=== PATIENT | female | born 1985 | race Caucasian/White ===

== ENCOUNTER 2023-03-03 08:00 | Outpatient (CLI) | payer OTHER ==
[2023-03-03 18:54] LABS: BASOPHILS # (AUTO) 0.1 10^3/uL (0.0-0.1); BASOPHILS % (AUTO) 0.5 %; EOSINOPHILS # (AUTO) 0.2 10^3/uL (0.0-0.7); EOSINOPHILS % (AUTO) 2.1 %; HCT - HEMATOCRIT 46.5 % (37.0-47.0); HGB - HEMOGLOBIN 15.2 g/dL (12.0-16.0); LYMPHOCYTES # (AUTO) 3.2 10^3/uL (1.5-3.5); LYMPHOCYTES % (AUTO) 34.2 %; MEAN CORPUSCULAR HEMOGLOBIN 30.8 pg (27.0-31.0); MEAN CORPUSCULAR HGB CONC 32.7 g/dL (32.0-36.0); MEAN CORPUSCULAR VOLUME 94.1 fL (81.0-99.0); MEAN PLATELET VOLUME 10.2 fL (7.9-10.8); MONOCYTES # (AUTO) 0.5 10^3/uL (0.0-1.0); MONOCYTES % (AUTO) 5.4 %; NEUTROPHILS # (AUTO) 5.4 10^3/uL (1.5-6.6); NEUTROPHILS % (AUTO) 57.4 %; PLT - PLATELET COUNT 487 10^3/uL (130-450); RED BLOOD COUNT 4.94 10^6/uL (4.20-5.40); RED CELL DISTRIBUTION WIDTH 13.3 % (12.0-15.0); WHITE BLOOD COUNT 9.5 x10^3/uL (4.8-10.8)
[2023-03-03 19:23] LABS: ALBUMIN 4.4 g/dL (3.2-5.5); ALBUMIN/GLOBULIN RATIO 1.4 (1.0-2.2); BILIRUBIN,TOTAL 0.5 mg/dL (0.2-1.0); CALCIUM 9.3 mg/dL (8.5-10.3); CREATININE 0.7 mg/dL (0.6-1.3); CRP - C-REACTIVE PROTEIN 1.4 mg/dL (<0.5); TOTAL PROTEIN 7.6 g/dL (6.4-8.9)
[2023-03-03 21:18] LABS: CHLAMYDIA TRACHOMATIS DNA NEGATIVE (NEGATIVE); NEISSERIA GONORRHOEAE DNA NEGATIVE (NEGATIVE)
[2023-03-03 22:48] LABS: BACTERIAL VAGINOSIS DNA NEGATIVE (NEGATIVE); CANDIDA GLABRATA DNA NEGATIVE (NEGATIVE); CANDIDA GROUP DNA NEGATIVE (NEGATIVE); CANDIDA KRUSEI DNA NEGATIVE (NEGATIVE); TRICHOMONAS VAGINALIS DNA NEGATIVE (NEGATIVE)
== END 2023-03-03 23:59 | disposition home or self-care (01) ==
LOC: LAB.N 08:00
PROVIDERS: ATTEND Registered Nurse
DX: R10.30 Lower abdominal pain, unspecified (principal); R30.0 Dysuria
CPT/HCPCS: 36415; 80053; 81514; 83690; 85025; 86140; 87086; 87491; 87591; 87661

== ENCOUNTER 2023-12-17 18:08 | Emergency (ER) | payer SELFPAY ==
[2023-12-17 18:20] VITALS: BP 145/83; O2SAT 97
[2023-12-17 18:38] LABS: BASOPHILS # (AUTO) 0.1 10^3/uL (0.0-0.1); BASOPHILS % (AUTO) 0.6 %; EOSINOPHILS # (AUTO) 0.3 10^3/uL (0.0-0.7); HCT - HEMATOCRIT 43.5 % (37.0-47.0); HGB - HEMOGLOBIN 14.6 g/dL (12.0-16.0); MEAN CORPUSCULAR HEMOGLOBIN 31.1 pg (27.0-31.0); MEAN CORPUSCULAR HGB CONC 33.6 g/dL (32.0-36.0); MEAN CORPUSCULAR VOLUME 92.6 fL (81.0-99.0); MEAN PLATELET VOLUME 9.2 fL (7.9-10.8); MONOCYTES # (AUTO) 0.7 10^3/uL (0.0-1.0); MONOCYTES % (AUTO) 8.1 %; NEUTROPHILS # (AUTO) 4.4 10^3/uL (1.5-6.6); NEUTROPHILS % (AUTO) 52.1 %; PLT - PLATELET COUNT 470 10^3/uL (130-450); RED CELL DISTRIBUTION WIDTH 13.2 % (12.0-15.0); WHITE BLOOD COUNT 8.4 x10^3/uL (4.8-10.8)
[2023-12-17 18:44] LABS: BILIRUBIN,URINE NEGATIVE (NEGATIVE); GLUCOSE, URINE (UA) NEGATIVE (NEGATIVE); KETONES,URINE (UA) NEGATIVE (NEGATIVE); LEUKOCYTE ESTERASE, URINE NEGATIVE (NEGATIVE); NITRITE,URINE NEGATIVE (NEGATIVE); OCCULT BLOOD,URINE TRACE-INTA (NEGATIVE); PROTEIN,URINE NEGATIVE (NEGATIVE); UROBILINOGEN,URINE 0.2 (NORMAL) E.U./dL (NORMAL)
[2023-12-17 18:48] LABS: CLARITY,URINE CLEAR (CLEAR); HCG UR QUAL NEGATIVE
[2023-12-17 18:51] LABS: ALBUMIN 4.1 g/dL (3.2-5.5); ALBUMIN/GLOBULIN RATIO 1.3 (1.0-2.2); BILIRUBIN,TOTAL 0.5 mg/dL (0.2-1.0); CALCIUM 8.7 mg/dL (8.5-10.3); CREATININE 0.8 mg/dL (0.6-1.3); POTASSIUM 3.7 mmol/L (3.5-4.5); TOTAL PROTEIN 7.3 g/dL (6.4-8.9)
[2023-12-17] MEDS: ONDANSETRON 4 MG/2 ML VIAL IVP STA (19:33)
--- NOTE | 2023-12-17 19:34 | ED Physician Documentation ---
History of Present Illness - Stated complaint Stated Complaint: RT SIDE ABD PX - Chief complaint Chief Complaint: Abd Pain - Additonal information Additional information: Patient is a 37-year-old female presenting to the emergency department with past medical history of cholecystectomy. Patient presents with right upper quadrant pain. She notes symptoms have been going on for a few weeks but worsened within the last 2 days. She is scheduled for an ultrasound the outpatient setting with her PCP but not for another month. She developed nausea and vomiting over the last 2 days and symptoms have progressively gotten worse. She notes she has been unable to eat or drink anything due to severe pain after eating. She has no history of alcohol use no history of pancreatitis. No other abdominal surgeries. She has no fevers but occasional chills with her symptoms. She has been urinating normally and has been slightly more constipated but denies any other symptoms. She notes pain radiates to the right upper back. She notes her pain feels similar to when she had gallstones in the past. PD PAST MEDICAL HISTORY - Past Medical History Past Medical History: No Cardiovascular: None Respiratory: None Neuro: None Endocrine/Autoimmune: None GI: None [employer] TECH[employer]ICIAN: None : None HEENT: None Psych: None Musculoskeletal: None Derm: None - Past Surgical History Past Surgical History: Yes General: Cholecystectomy - Present Medications Home Medications: Ambulatory Orders Medication Instructions Recorded Confirmed Famotidine [Pepcid] 20 mg PO BID #60 tablet 12/17/23 Ondansetron Odt [Zofran] 4 mg TL Q6H PRN #10 tablet 12/17/23 Pepsin/Glutam/Betaine/Gentian 1 each PO DAILY #15 cap 12/17/23 [Gastracid Capsule] - Allergies Allergies/Adverse Reactions: Allergies Allergy/AdvReac Type Severity Reaction Status Date / Time No Known Drug Allergies Allergy Verified 12/17/23 18:19 - Social History Does the pt smoke?: No Smoking Status: Never smoker PD ED PE NORMAL - Vitals Vital signs reviewed: Yes - General General: Alert and oriented X 3 - HEENT HEENT: Atraumatic - Neck Neck: Supple, no meningeal sign - Cardiac Cardiac: RRR - Respiratory Respiratory: No respiratory distress, Clear bilaterally - Abdomen Abdomen: Normal bowel sounds, Soft, Non distended, Other (Reproducible abdominal tenderness on examination in upper abdomen. Positive haney sign. ) - Back Back: No CVA TTP, No spinal TTP - Derm Derm: Normal color, Warm and dry, No rash - Extremities Extremities: No deformity, No tenderness to palpate - Neuro Neuro: Alert and oriented X 3 Eye Opening: Spontaneous Motor: Obeys Commands Verbal: Oriented GCS Score: 15 Results - Vitals Vitals: Vital Signs - 24 hr 12/17/23 18:10 Temperature 36.5 C Heart Rate 91 Respiratory 18 Rate Blood Pressure 145/83 H O2 Saturation 97 Oxygen O2 Source Room air - Labs Labs: Laboratory Tests 12/17/23 12/17/23 12/17/23 18:26 18:29 18:29 WBC 8.4 RBC 4.70 Hgb 14.6 Hct 43.5 MCV 92.6 MCH 31.1 H MCHC 33.6 RDW 13.2 Plt Count 470 H MPV 9.2 Neut # (Auto) 4.4 Lymph # (Auto) 3.0 [place] # (Auto) 0.7 Eos # (Auto) 0.3 Baso # (Auto) 0.1 Absolute Nucleated RBC 0.00 Nucleated RBC % 0.0 Sodium 137 Potassium 3.7 Chloride 106 Carbon Dioxide 25 Anion Gap 6.0 BUN 17 Creatinine 0.8 Estimated GFR (MDRD) 80 L Glucose 116 H Calcium 8.7 Total Bilirubin 0.5 AST 23 ALT 39 Alkaline Phosphatase 83 Troponin I High Sens Total Protein 7.3 Albumin 4.1 Globulin 3.2 Albumin/Globulin Ratio 1.3 Lipase 30 Urine Color YELLOW Urine Clarity CLEAR Urine pH 7.0 Ur Specific [place] 1.010 Urine Protein NEGATIVE Urine Glucose (UA) NEGATIVE Urine Ketones NEGATIVE Urine Occult Blood TRACE-INTA Urine Nitrite NEGATIVE Urine Bilirubin NEGATIVE Urine Urobilinogen 0.2 (NORMAL) Ur Leukocyte Esterase NEGATIVE Ur Microscopic Review NOT INDICATED Urine Culture Comments NOT INDICATED Urine HCG, Qual NEGATIVE 12/17/23 18:29 WBC RBC Hgb Hct MCV MCH MCHC RDW Plt Count MPV Neut # (Auto) Lymph # (Auto) [place] # (Auto) Eos # (Auto) Baso # (Auto) Absolute Nucleated RBC Nucleated RBC % Sodium Potassium Chloride Carbon Dioxide Anion Gap BUN Creatinine Estimated GFR (MDRD) Glucose Calcium Total Bilirubin AST ALT Alkaline Phosphatase Troponin I High Sens < 2.3 L Total Protein Albumin Globulin Albumin/Globulin Ratio Lipase Urine Color Urine Clarity Urine pH Ur Specific [place] Urine Protein Urine Glucose (UA) Urine Ketones Urine Occult Blood Urine Nitrite Urine Bilirubin Urine Urobilinogen Ur Leukocyte Esterase Ur Microscopic Review Urine Culture Comments Urine HCG, Qual PD Medical Decision Making - ED course Complexity details: reviewed old records, reviewed results, re-evaluated patient ED course: Patient is a 37-year-old female presenting to the emergency department with symptoms of right upper quadrant pain. Patient's symptoms radiate to right upper back. She notes nausea and vomiting associate with symptoms. Patient has history of cholecystectomy but no other abdominal surgeries. She denies any fevers associate with her symptoms. She notes symptoms have progressively worsened over the last month and within the last 2 days she has been unable to keep anything down to her symptoms. Patient has been passing gas. She has not taken anything for symptoms. Vital stable on arrival patient is afebrile nontachycardic. Physical exam shows positive Haney sign on examination with pain radiating to epigastric region. Patient given Toradol Zofran and Pepcid for pain control here in emergency department. Right upper quadrant ultrasound to further evaluate symptoms. Labs show no significant leukocytosis LFTs and bilirubin within normal range. UA shows no signs of UTI low suspicion for any pyelonephritis causing symptoms no blood in the urine low suspicion for any Kidney stones. Given patient is passing gas and specific right upper quadrant pain low suspicion for bowel obstruction. EKG obtained showing no signs of ischemia. Troponin is within normal range as well. Ultrasound here in the emergency department showed no common bile duct obstruction no signs of cholangitis or bile duct obstruction. Hepatic steatosis noted and bowel gas appreciated as well. This is most likely causing patient's symptoms. Will send patient home prescription of Pepcid as this seemed to help her symptoms here. Patient instructed to return with any fevers worsening abdominal pain nausea vomiting. Departure - Departure Clinical Impression: Gastritis, Constipation, Abdominal bloating Forms: PCP List
[2023-12-17] MEDS: PANTOPRAZOLE 40 MG VIAL IVP STA (19:52)
[2023-12-17] MEDS: KETOROLAC 15 MG/ML VIAL IVP STA (19:53)
--- NOTE | 2023-12-17 21:35 | Ultrasound Report ---
PROCEDURE: Abdomen Limited INDICATIONS: RUQ pain, eval billiary, hx of cholecystectomy TECHNIQUE: Real-time focused scanning was performed of the abdomen, with image documentation. COMPARISONS: None. FINDINGS: Liver: Liver is normal in size and increase in echogenicity. Gallbladder: Surgically absent Biliary ducts: Intrahepatic bile ducts are non-dilated. Extrahepatic bile duct caliber measures 3.3 mm, not well seen. Normal is 6-7 mm or less in diameter, or 10 mm or less post-cholecystectomy. Pancreas: Visualized portions of the pancreas are sonographically normal. Pancreatic tail is not see n. Right kidney: Normal in size and echotexture. Right kidney measures 10.3 cm long. No hydronephrosis or nephrolithiasis. No solid masses. No complex renal cystic lesions which require follow-up. IVC: Intrahepatic inferior vena cava is patent. Miscellaneous: No free abdominal fluid. IMPRESSION: 1.Status post cholecystectomy. Bile ducts are not well seen but appear nondilated. 2.Hepatic steatosis. Reviewed by: Ric Connelly MD on 12/17/2023 9:33 PM PDT Approved by: Ric Connelly MD on 12/17/2023 9:33 PM PDT Station ID: [id number]
== END 2023-12-17 21:10 | disposition home or self-care (01) ==
LOC: ED 18:08
DX: K29.70 Gastritis, unspecified, without bleeding (principal); K59.00 Constipation, unspecified; R14.0 Abdominal distension (gaseous)
CPT/HCPCS: 36415; 80053; 81001; 81003; 81025; 83690; 84484; 85025; 87086; 93005; 96374; 96375; 99284